=== PATIENT | female | born 1970 | race Caucasian/White ===

== ENCOUNTER 2024-11-21 15:03 | Emergency (ER) | payer SELFPAY ==
[~2024-11-21] VITALS: Ht 165.1 cm; Wt 77.1 kg
[2024-11-21 16:47] VITALS: TEMP 98.8
[2024-11-21 18:58] VITALS: RESP 18
[2024-11-21] MEDS ORDERED: NAPROXEN375 MG PO (19:03)
[2024-11-21] MEDS: TRAMADOL HCL 50 MG TAB PO ONE (19:17)
[2024-11-21] MEDS: KETOROLAC TROMETHAMINE 30 MG/ML VIAL IM STA (19:17)
[2024-11-21 19:30] VITALS: PULSE 73
[2024-11-21 19:45] VITALS: BP 134/74; O2SAT 97
== END 2024-11-21 19:46 | disposition home or self-care (01) ==
LOC: ER 18:11
DX: M25.561 Pain in right knee (principal); M25.532 Pain in left wrist; M25.531 Pain in right wrist; G89.29 Other chronic pain
CPT/HCPCS: 73110 ×2; 73560; 99284; J1885